=== PATIENT | female | born 1970 | race Native Hawaiian/Other Pacific Islander ===

== ENCOUNTER 2018-07-07 14:45 | Emergency (ER) | payer OTHER ==
[2018-07-07 14:50] VITALS: BP 139/84; PULSE 86; RESP 18; TEMP 98.4; O2SAT 100
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
== END 2018-07-07 16:43 | disposition home or self-care (01) ==
LOC: H.ER 14:45
DX: S13.4XXA Sprain of ligaments of cervical spine, initial encounter (principal); R51 Headache; V49.40XA Driver injured in collision with unspecified motor vehicles in traffic accident, initial encounter